=== PATIENT | female | born 1990 | race Caucasian/White ===

== ENCOUNTER 2018-04-15 20:07 | Emergency (ER) | payer OTHER ==
[2018-04-15] MEDS ORDERED: Cephalexin CAP* 500 MG PO ONE (22:02)
--- NOTE | 2018-04-15 22:03 | ED ---
Skin Complaint - HPI Summary HPI Summary: Patient complains of left ear pain, swelling, redness, warmth at site of piercing in upper cartilage of left ear starting today. Denies fever, cough, sore throat, CP, CAMPBELL, ear pain, N/V/D, abdominal pain, change in urine, change in BM. Medical history is none. - History of Current Complaint Chief Complaint: EDEarPain Time Seen by Provider: 04/15/18 20:19 Stated Complaint: LT EAR PAIN/POSS INFECTION Hx Obtained From: Patient Onset/Duration: Started Hours Ago Skin Exposure Onset/Duration: Hours Ago Timing: Constant Onset Severity: Moderate Current Severity: Moderate Pain Intensity: 7 Pain Scale Used: 0-10 Numeric Skin Location: Discrete Aggravating Symptom(s): Touch Alleviating Symptom(s): Nothing Associated Signs & Symptoms: Negative - Allergy/Home Medications Allergies/Adverse Reactions: Allergies Allergy/AdvReac Type Severity Reaction Status Date / Time No Known Allergies Allergy Verified 04/15/18 20:15 Home Medications: Home Medications Levonorgestrel-Ethin Estradiol [Chateal Eq-28 Tablet] 1 each PO DAILY 04/15/18 [ History Confirmed 04/15/18] ValACYclovir (*) [Valtrex 500 mg (*)] 500 mg PO DAILY 04/15/18 [History Confirmed 04/15/18] PMH/Surg Hx/FS Hx/Imm Hx Endocrine/Hematology History: Denies: Hx Anticoagulant Therapy Cardiovascular History: Denies: Hx Cardiac Arrest History: Denies: Hx Dialysis Neurological History: Denies: Hx CVA Infectious Disease History: No Infectious Disease History: Denies: Traveled Outside the [place] in Last 30 Days - Social History Alcohol Use: Occasionally Substance Use Type: Reports: None Smoking Status (MU): Never Smoked Tobacco Review of Systems Constitutional: Negative Eyes: Negative ENT: Negative Cardiovascular: Negative Respiratory: Negative Gastrointestinal: Negative Genitourinary: Negative Musculoskeletal: Negative Skin: Other Neurological: Negative Psychological: Normal All Other Systems Reviewed And Are Negative: Yes Physical Exam - Summary Physical Exam Summary: Apical abscess at site of piercing in upper cartilage of left ear. Erythema swelling locally on external ear cartilage. Triage Information Reviewed: Yes Vital Signs On Initial Exam: Initial Vitals Temp Pulse Resp BP Pulse Ox 98.1 F 117 15 149/99 98 04/15/18 20:13 04/15/18 20:13 04/15/18 20:13 04/15/18 20:13 04/15/18 20:13 Vital Signs Reviewed: Yes Appearance: Positive: Well-Appearing Skin: Positive: Warm Head/Face: Positive: Normal Head/Face Inspection Eyes: Positive: Normal Neck: Positive: Supple Respiratory/Lung Sounds: Positive: Clear to Auscultation Cardiovascular: Positive: Normal Abdomen Description: Positive: Nontender Musculoskeletal: Positive: Normal Neurological: Positive: Normal Psychiatric: Positive: Normal AVPU Assessment: Alert - Leonel Coma Scale Best Eye Response: 4 - Spontaneous Best Motor Response: 6 - Obeys Commands Best Verbal Response: 5 - Oriented Coma Scale Total: 15 Procedures - Incision and Drainage 1 Site: left ear Anesthesia: Local Instrument(s): Scalpel Diagnostics - Vital Signs Vital Signs Temp Pulse Resp BP Pulse Ox 04/15/18 20:13 98.1 F 117 15 149/99 98 - Laboratory Lab Statement: Any lab studies that have been ordered have been reviewed, and results considered in the medical decision making process. Course/Dx - Course Course Of Treatment: Patient complains of left ear pain, swelling, redness, warmth at site of piercing in upper cartilage of left ear starting today. Denies fever, cough, sore throat, CP, CAMPBELL, ear pain, N/V/D, abdominal pain, change in urine, change in BM. Medical history is none. Physical exam:Apical abscess at site of piercing in upper cartilage of left ear. Erythema swelling locally on external ear cartilage. Vital signs within normal limits. I&D performed. Rx for Keflex - Diagnoses Provider Diagnoses: Abscess Discharge - Sign-Out/Discharge Documenting (check all that apply): Patient Departure - Discharge Plan Condition: Stable Disposition: HOME Prescriptions: Cephalexin CAP* [Keflex CAP*] 500 mg PO TID 7 Days #21 cap Patient Education Materials: Abscess (ED) Referrals: No Primary Care Phys,NOPCP [Primary Care Provider] - Additional Instructions: Take antibiotics as directed. Wash with warm running water and soap. Use warm compresses or warm shower water to help drain. Keep surgical opening active. Return to the ED for any new or worsening symptoms - Billing Disposition and Condition Condition: STABLE Disposition: Home
[2018-04-15 22:14] VITALS: BP 141/97
== END 2018-04-15 22:13 | disposition home or self-care (01) ==
LOC: ED 20:07
DX: H92.02 Otalgia, left ear (principal); H66.42 Suppurative otitis media, unspecified, left ear
CPT/HCPCS: 10060; 99282; A9270-GY

== ENCOUNTER 2018-12-12 09:46 | Emergency (ER) | payer OTHER ==
[2018-12-12] MEDS ORDERED: NS 0.9% 1000 ML** 1,000 ML IV ONE (10:47)
[2018-12-12] MEDS ORDERED: Ketorolac INJ* 30 MG/ML 1 ML VIAL IV PUSH ONE (10:47)
[2018-12-12] MEDS ORDERED: Ondansetron INJ* 2 MG/ML VIAL IV ONE (10:47)
--- NOTE | 2018-12-12 10:48 | ED ---
Abdominal Pain/Female - HPI Summary HPI Summary: Patient is a 20-year-old female who presents emergency department for lower diffuse abdominal pain that started this morning. Associated symptoms of nausea and vomiting. Patient states she is currently having her normal menstrual cycle but states she typically does not get this severe menstrual cramping. Patient also notes diarrhea. She denies sick contacts or recent travels. Denies associated symptoms of fever, chills, dysuria. Patient has no past medical history. Symptoms are moderate in severity. No current modifying factors. - History of Current Complaint Chief Complaint: EDAbdPain Stated Complaint: ABD PAIN AND VOMITING/DIARRHEA PER PT Time Seen by Provider: 12/12/18 10:08 Hx Obtained From: Patient Pain Intensity: 4 Allergies/Adverse Reactions: Allergies Allergy/AdvReac Type Severity Reaction Status Date / Time No Known Allergies Allergy Verified 12/12/18 09:51 PMH/Surg Hx/FS Hx/Imm Hx Previously Healthy: Yes Endocrine/Hematology History: Denies: Hx Anticoagulant Therapy Cardiovascular History: Denies: Hx Cardiac Arrest History: Denies: Hx Dialysis Neurological History: Denies: Hx CVA Infectious Disease History: No Infectious Disease History: Denies: Traveled Outside the [place] in Last 30 Days - Family History Known Family History: Positive: Non-Contributory - Social History Occupation: Student Lives: Dormitory/Roommates Alcohol Use: Occasionally Substance Use Type: Reports: None Smoking Status (MU): Never Smoked Tobacco Review of Systems Constitutional: Negative Negative: Fever, Chills ENT: Negative Cardiovascular: Negative Respiratory: Negative Negative: Shortness Of Breath, Cough Positive: Abdominal Pain, Vomiting, Diarrhea, Nausea Genitourinary: Negative Negative: dysuria, flank pain Neurological: Negative All Other Systems Reviewed And Are Negative: Yes Physical Exam Triage Information Reviewed: Yes Vital Signs On Initial Exam: Initial Vitals Temp Pulse Resp BP Pulse Ox 97.7 F 87 16 121/99 98 12/12/18 09:47 12/12/18 09:47 12/12/18 09:47 12/12/18 09:47 12/12/18 09:47 Vital Signs Reviewed: Yes Appearance: Positive: Well-Appearing - Pt. lying in bed, appears to feel unwell but nontoxic. Friend present. Skin: Positive: Warm, Dry Head/Face: Positive: Normal Head/Face Inspection Eyes: Positive: Normal, EOMI, MAK Neck: Positive: Supple Respiratory/Lung Sounds: Positive: Clear to Auscultation, Breath Sounds Present Cardiovascular: Positive: Normal, RRR Abdomen Description: Positive: Other: - Obese. Abd is soft with diffuse pain across pelvis, slightly more pain to RLQ. Minimal guardings. No rigitidy. Neurological: Positive: Normal, CN Intact II-III Psychiatric: Positive: Affect/Mood Appropriate Diagnostics - Vital Signs Vital Signs Temp Pulse Resp BP Pulse Ox 12/12/18 10:33 80 125/82 99 12/12/18 10:03 84 141/91 100 12/12/18 10:02 77 99 12/12/18 09:47 97.7 F 87 16 121/99 98 - Laboratory Result Diagrams: 12/12/18 10:56 12/12/18 10:56 Lab Statement: Any lab studies that have been ordered have been reviewed, and results considered in the medical decision making process. Abdominal Pain Fem Course/Dx - Course Course Of Treatment: Patient presenting with diffuse lower abdominal pain, vomiting and diarrhea is homeless her menstrual cycle. She is afebrile with stable signs patient has mild tenderness to lower pelvis on palpation, right greater than left. Patient was given IV fluids given vomiting and given IV Zofran and Toradol. Basic labs were obtained which show a normal WBC, negative and normal CRP. Lactic acid mildly elevated. Urinalysis shows RBCs but signs of infection. Reexamination patient is feeling much better and her pain and vomiting have greatly improved. Suspect her symptoms are most likely secondary to dysmenorrhea and/or gastroenteritis. Discussed possibility of ovarian cysts versus appendicitis. Appendicitis is low suspicion given exam and normal WBC and CRP. Ultrasound of pelvis further evaluation was negative per radiology. Patient is comfortable being discharged home and will return to the ER if pain localizes to quadrant, ongoing vomiting, fever or if concerned. Patient understands and agrees with plan. - Diagnoses Differential Diagnosis: Positive: Appendicitis, Bowel Obstruction, Ectopic , , Renal Colic, Urinary Tract Infection Provider Diagnoses: Gastroenteritis, Abdominal pain Discharge - Sign-Out/Discharge Documenting (check all that apply): Patient Departure Patient Received Moderate/Deep Sedation with Procedure: No - Discharge Plan Condition: Improved Disposition: HOME Prescriptions: Ondansetron TAB* [Zofran 4 MG Tab*] 4 mg PO Q6H PRN #12 tab PRN Reason: Nausea Patient Education Materials: Gastroenteritis (ED), Abdominal Pain (ED) Referrals: [facility] [Outside] Additional Instructions: Follow up with [facility] tomorrow Increase fluids and rest Zofran as directed for nausea Ibuprofen for pain as directed Return to ER for increased pain, fever, uncontrolled vomiting, or if concerned - Billing Disposition and Condition Condition: IMPROVED Disposition: Home
[2018-12-12 11:10] LABS: ABS Eosinophils 0.1 10^3/ul (0-0.6); ABS Lymphocytes 1.4 10^3/ul (1.0-4.8); ABS Monocytes 0.4 10^3/ul (0-0.8); ABS Neutrophils 4.9 10^3/ul (1.5-7.7); Eosinophil % 0.8 %; Hematocrit 44 % (35-47); Lymphocyte % 20.9 %; Mean Corpuscular HGB Conc 34 g/dL (31-36); Mean Corpuscular Hemoglobin 33 pg (27-31); Mean Corpuscular Volume 97 fL (80-97); Mean Platelet Volume 8.2 fL (7.4-10.4); Platelet Count 272 10^3/uL (150-450); Red Cell Distribution Width 13 % (10-15); White Blood Count 6.8 10^3/uL (3.5-10.8)
[2018-12-12 11:21] LABS: ALT 11 U/L (7-52); AST 15 U/L (13-39); Albumin 4.2 g/dL (3.2-5.2); Albumin/Globulin Ratio 1.3 (1-3); Alkaline Phosphatase 66 U/L (34-104); Anion Gap 7 mmol/L (2-11); BUN/Creatinine Ratio 9.7 (8-20); Blood Urea Nitrogen 7 mg/dL (6-24); C Reactive Protein 1.31 mg/L (<8.01); CO2 Carbon Dioxide 24 mmol/L (22-32); Calcium 9.5 mg/dL (8.6-10.3); Chloride 109 mmol/L (101-111); EGFR African American 116.7 (>60); EGFR Non-African American 96.5 (>60); Globulin 3.2 g/dL (2-4); Glucose 97 mg/dL (70-100); Potassium 4.8 mmol/L (3.5-5.0); Sodium 140 mmol/L (135-145); Total Protein 7.4 g/dL (6.4-8.9)
[2018-12-12 11:29] LABS: HCG Pregnancy < 0.60 mIU/mL
[2018-12-12 14:01] LABS: Urine Appearance Clear; Urine Bacteria Absent (Absent); Urine Bilirubin Negative (Negative); Urine Blood 3+ (Negative); Urine Color Yellow; Urine Glucose Negative (Negative); Urine Ketones Negative (Negative); Urine Nitrite Negative (Negative); Urine Protein Negative (Negative); Urine Red Blood Cell 3+(>10/hpf) (Absent); Urine Specific Gravity 1.013 (1.010-1.030); Urine Squamous Epithelial Cell Present (Absent); Urine Urobilinogen Negative (Negative); Urine White Blood Cell Trace(0-5/hpf) (Absent)
[2018-12-12 14:51] VITALS: BP 117/77
== END 2018-12-12 14:50 | disposition home or self-care (01) ==
LOC: ED 09:46
DX: K52.9 Noninfective gastroenteritis and colitis, unspecified (principal); R10.30 Lower abdominal pain, unspecified; Z32.02 Encounter for pregnancy test, result negative
CPT/HCPCS: 36415; 76856; 80053; 81003; 81015; 83605; 83690; 84702; 85025; 86140; 87086; 96361; 96374; 96375; 99283; J1885; J2405

== ENCOUNTER 2023-11-23 12:15 | Inpatient (IN) ==
[2023-11-23] MEDS ORDERED: Nalbuphine 10 MG/ML 1 ML VIAL IV PRN (13:13)
[2023-11-23] MEDS: Lactated Ringers 1000 ml BAG 1,000 ML IV ONE (14:49)
[2023-11-23] MEDS: Oxytocin in LR 20,000 MILLI.UNIT/1,000 ML BAG IV SCH ×2 (14:57→20:00)
[2023-11-23] MEDS: Penicillin G Potassium IV 5,000,000 UNITS in NS 0.9% 100 ml BAG 100 ML IVPB ONE (14:57)
[2023-11-23 15:15] LABS: ABS Lymphocytes 2.3 10^3/uL (1.0-4.8); ABS Monocytes 0.7 10^3/uL (0.0-0.9); ABS Neutrophils 8.8 10^3/uL (1.5-7.6); ABS Nucleated RBC 0.01 10^3/ul; Eosinophil % 0.2 %; Hematocrit 41.6 % (35-45); Hemoglobin 14.3 g/dL (11.5-14.3); Lymphocyte % 19.1 %; Mean Corpuscular Hgb Conc 34.4 g/dL (31-36); Mean Corpuscular Volume 96.1 fL (80-97); Mean Platelet Volume 9.5 fL (7.5-11.2); Nucleated Red Blood Cells % 0.1 %/100WBC (0.0-0.8); Platelet Count 257 10^3/uL (150-450); Red Blood Count 4.32 10^6/uL (3.63-4.92); Red Cell Distribution Width 12.7 % (12-17); White Blood Count 11.8 10^3/uL (3.8-11.8)
[2023-11-23] MEDS: Lactated Ringers 1000 ml BAG 1,000 ML IV SCH (15:17)
[2023-11-23] MEDS ORDERED: Phenylephrine 40 mcg/mL 10mL (400mcg) SYRINGE IV PUSH PRN ×2 (15:57)
[2023-11-23] MEDS ORDERED: Sodium Citrate/Citric Acid LIQ 15 ML UDC PO PRN (15:57)
[2023-11-23] MEDS: OBEPIDURAL (200 ML) 200 ML EPIDURAL ONE (16:34)
[2023-11-23 17:47] LABS: Urine Appearance Clear; Urine Bilirubin Negative (Negative); Urine Blood Trace (Negative); Urine Color Yellow; Urine Glucose Negative (Negative); Urine Ketones 3+ (Negative); Urine Nitrite Negative (Negative); Urine Protein Trace (Negative); Urine Specific Gravity 1.029 (1.002-1.030); Urine Urobilinogen Negative (Negative)
[2023-11-23 18:16] LABS: Urine Benzodiazepine Screen None Detected (None Detect); Urine Cannabinoids Screen None Detected (None Detect); Urine Opiates Screen None Detected (None Detect)
[2023-11-23] MEDS: Lidocaine 1% VIAL 10 MG/ML 30 ML VIAL INJ PRN (19:00)
[2023-11-23] MEDS ORDERED: Glycerin ADULT 2.4 gm SUPP PR PRN (19:57)
[2023-11-23] MEDS ORDERED: Lactated Ringers 1000 ml BAG 1,000 ML IV SCH (20:00)
[2023-11-23] MEDS: Dibucaine 1% OINT 28.35 GM TUBE PR PRN (20:48)
[2023-11-23] MEDS: Witch Hazel PAD JAR TOPICAL PRN (20:48)
[2023-11-24 06:29] LABS: ABS Lymphocytes 1.9 10^3/uL (1.0-4.8); ABS Monocytes 0.9 10^3/uL (0.0-0.9); ABS Neutrophils 8.1 10^3/uL (1.5-7.6); Eosinophil % 0.2 %; Hematocrit 33.7 % (35-45); Hemoglobin 11.7 g/dL (11.5-14.3); Lymphocyte % 17.7 %; Mean Corpuscular Hemoglobin 33.6 pg (27-33); Mean Corpuscular Hgb Conc 34.6 g/dL (31-36); Mean Corpuscular Volume 97.1 fL (80-97); Mean Platelet Volume 8.8 fL (7.5-11.2); Platelet Count 202 10^3/uL (150-450); Red Blood Count 3.47 10^6/uL (3.63-4.92); Red Cell Distribution Width 12.6 % (12-17)
[2023-11-24] MEDS: Buffered Lidocaine 1% SYRIN 1 ml INTRADERM ONE ×2 (07:18→07:21)
[2023-11-24] MEDS: Penicillin G Potassium IV 3,000,000 UNITS in NS 0.9% 100 ml BAG 100 ML IVPB SCH (07:19)
[2023-11-24] MEDS: OBEPIDURAL (200 ML) 200 ML EPIDURAL SCH (07:20)
[2023-11-24] MEDS: Lidocaine 1.5% EPI 1:200,000 30 ML SDV ONE (07:21)
[2023-11-24] MEDS: Lactated Ringers 1000 ml BAG 1,000 ML IV SCH (07:21)
[2023-11-24] MEDS: Lactated Ringers 1000 ml BAG 1,000 ML IV ONE (07:21)
[2023-11-25 08:04] VITALS: BP 133/81
== END 2023-11-25 12:30 | disposition home or self-care (01) | DRG 560 ==
LOC: MCHOBOUT 12:15 → MCHOB 14:26
PROVIDERS: ADMIT Obstetrics & Gynecology; ATTEND Obstetrics & Gynecology